=== PATIENT | male | born 1980 | race African-American/Black ===

== ENCOUNTER 2018-08-21 17:23 | Emergency (ER) | payer MEDICAID ==
[~2018-08-21] VITALS: Ht 177.8 cm; Wt 98.0 kg
[2018-08-21 19:44] VITALS: BP 146/85
== END 2018-08-21 19:42 | disposition home or self-care (01) ==
LOC: ER 17:23
DX: G56.31 Lesion of radial nerve, right upper limb (principal); F17.200 Nicotine dependence, unspecified, uncomplicated; F12.10 Cannabis abuse, uncomplicated
CPT/HCPCS: 73030; 99283

== ENCOUNTER 2025-05-29 10:16 | Emergency (ER) | payer MEDICAID ==
[~2025-05-29] VITALS: Ht 180.3 cm; Wt 91.0 kg
[2025-05-29 10:43] VITALS: O2SAT 99
[2025-05-29] MEDS: BACITRACIN ZINC OINT UDPKT TOP ONE (11:04)
[2025-05-29] MEDS: LIDOCAINE HCL 1% 20ML VIAL INFIL ONE (11:05)
[2025-05-29] MEDS ORDERED: BO1 TP (11:16)
[2025-05-29] MEDS ORDERED: CEPH500C2 MT (11:16)
[2025-05-29 11:21] VITALS: BP 142/93; PULSE 95; RESP 17; TEMP 36.7; O2SAT 99
== END 2025-05-29 11:13 | disposition home or self-care (01) ==
LOC: ER 10:16
DX: L02.212 Cutaneous abscess of back [any part, except buttock and flank] (principal); I10 Essential (primary) hypertension; F12.90 Cannabis use, unspecified, uncomplicated; Z88.8 Allergy status to other drugs, medicaments and biological substances
CPT/HCPCS: 99283; 10060; J2003